=== PATIENT | male | born 1960 | race Caucasian/White ===

== ENCOUNTER 2018-03-11 21:25 | Inpatient (IN) | payer OTHER ==
[2018-03-11] MEDS ORDERED: morphine 2 MG INJ IV (22:30)
[2018-03-11] MEDS ORDERED: DOCUSATE SODIUM 100 MG CAP PO (22:30)
[2018-03-11] MEDS ORDERED: NACL 0.9% 3 ML SYG IV (22:30)
[2018-03-11] MEDS ORDERED: ONDANSETRON 4 MG INJ IV (22:30)
[2018-03-11] MEDS ORDERED: BISACODYL (EC) 5 MG TAB PO (22:30)
[2018-03-11 23:17] LABS: ADD MAN DIFF? NO
[2018-03-11 23:19] LABS: BASOPHILS % 0.3 % (0.0-2.0); EOSINOPHILS # 0.2 10^3/ul (0.0-0.5); EOSINOPHILS % 1.9 % (0.0-7.0); HEMATOCRIT 43.9 % (42.0-52.0); LYMPHOCYTES # 3.8 10^3/ul (0.8-2.9); LYMPHOCYTES % 34.5 % (15.0-51.0); MEAN CORPUSCULAR HEMOGLOBIN 30.7 pg (29.0-33.0); MEAN CORPUSCULAR HGB CONC 34.2 g/dl (32.0-37.0); MEAN CORPUSCULAR VOLUME 89.8 fl (82.0-101.0); MEAN PLATELET VOLUME 10.7 fl (7.4-10.4); MONOCYTE # 0.9 10^3/ul (0.3-0.9); MONOCYTES % 8.1 % (0.0-11.0); NEUTROPHILS % 54.8 % (39.0-77.0); PLATELET COUNT 255 10^3/UL (140-415); RED BLOOD COUNT 4.89 10^6/ul (4.70-6.10); RED CELL DISTRIBUTION WIDTH 12.8 % (11.5-14.5)
[2018-03-11 23:19] LABS: WHITE BLOOD COUNT 10.9 10^3/ul (4.8-10.8)
[2018-03-11 23:40] LABS: INR 0.93; PROTIME 12.6 Sec (11.9-14.9)
[2018-03-11 23:48] LABS: ALANINE AMINOTRANSFERASE 46 IU/L (13-69); ALBUMIN 4.1 g/dl (3.3-4.9); ALBUMIN/GLOBULIN RATIO 1.24; ALKALINE PHOSPHATASE 63 IU/L (42-121); ANION GAP 11 (8-16); ASPARTATE AMINO TRANSFERASE 59 IU/L (15-46); BILIRUBIN,INDIRECT 0.5 mg/dl (0-1.1); BILIRUBIN,TOTAL 0.5 mg/dl (0.2-1.3); BLOOD UREA NITROGEN 19 mg/dl (7-20); CALCIUM 9.3 mg/dl (8.4-10.2); CARBON DIOXIDE 29 mmol/L (21-31); CHLORIDE 103 mmol/L (97-110); CREATINE KINASE 172 IU/L (23-200); GLUCOSE 128 mg/dl (70-220); POTASSIUM 4.1 mmol/L (3.5-5.1); SODIUM 139 mmol/L (135-144); TOTAL PROTEIN 7.4 g/dl (6.1-8.1)
[2018-03-11 23:54] LABS: CK INDEX 4.6; CK-MB 7.95 ng/ml (0.0-2.4)
[2018-03-12] MEDS: NITROGLYCERIN (SL) 0.4 MG TAB SL (00:09)
[2018-03-12] MEDS: HEPARIN 1000 UNITS/ML 10 ML INJ IV (00:13)
[2018-03-12] MEDS: HEPARIN 25000 UNITS/250 ML 250 ML IV (00:21)
[2018-03-12] MEDS: SOD CHLORIDE 0.9% 1,000 ML IV ×2 (00:59→17:17)
[2018-03-12 04:48] LABS: ADD MAN DIFF? NO
[2018-03-12 04:50] LABS: WHITE BLOOD COUNT 10.3 10^3/ul (4.8-10.8)
[2018-03-12 04:50] LABS: BASOPHILS % 0.3 % (0.0-2.0); EOSINOPHILS # 0.3 10^3/ul (0.0-0.5); EOSINOPHILS % 2.8 % (0.0-7.0); HEMATOCRIT 41.3 % (42.0-52.0); HEMOGLOBIN 14.3 g/dl (14.0-18.0); LYMPHOCYTES # 3.3 10^3/ul (0.8-2.9); MEAN CORPUSCULAR HGB CONC 34.6 g/dl (32.0-37.0); MEAN CORPUSCULAR VOLUME 89.4 fl (82.0-101.0); MEAN PLATELET VOLUME 10.4 fl (7.4-10.4); MONOCYTE # 1.2 10^3/ul (0.3-0.9); MONOCYTES % 11.4 % (0.0-11.0); NEUTROPHIL # 5.5 10^3/ul (1.6-7.5); PLATELET COUNT 239 10^3/UL (140-415); RED BLOOD COUNT 4.62 10^6/ul (4.70-6.10); RED CELL DISTRIBUTION WIDTH 12.8 % (11.5-14.5)
[2018-03-12 05:08] LABS: HEMOGLOBIN A1C 5.5 % (0-5.9)
[2018-03-12 05:11] LABS: PARTIAL THROMBOPLASTIN TIME 63.3 Sec (25.0-35.0)
[2018-03-12 05:12] LABS: CREATINE KINASE 150 IU/L (23-200)
[2018-03-12 05:13] LABS: ALANINE AMINOTRANSFERASE 45 IU/L (13-69); ALBUMIN 3.7 g/dl (3.3-4.9); ALBUMIN/GLOBULIN RATIO 1.19; ALKALINE PHOSPHATASE 63 IU/L (42-121); ANION GAP 11 (8-16); ASPARTATE AMINO TRANSFERASE 54 IU/L (15-46); BILIRUBIN,INDIRECT 0.6 mg/dl (0-1.1); BILIRUBIN,TOTAL 0.6 mg/dl (0.2-1.3); BLOOD UREA NITROGEN 21 mg/dl (7-20); CALCIUM 8.8 mg/dl (8.4-10.2); CARBON DIOXIDE 27 mmol/L (21-31); CHLORIDE 106 mmol/L (97-110); GLUCOSE 107 mg/dl (70-220); MAGNESIUM 2.1 mg/dl (1.7-2.5); TOTAL PROTEIN 6.8 g/dl (6.1-8.1)
[2018-03-12 05:18] LABS: SODIUM 140 mmol/L (135-144)
[2018-03-12 05:25] LABS: CK INDEX 3.9; CK-MB 5.87 ng/ml (0.0-2.4)
[2018-03-12] MEDS ORDERED: HEPARIN 1000 UNITS/ML 10 ML INJ IV (06:00)
[2018-03-12] MEDS: ASPIRIN 81 MG TAB PO (09:28)
[2018-03-12] MEDS ORDERED: NITROGLYCERIN (SL) 0.4 MG TAB SL (09:30)
[2018-03-12 10:15] LABS: CHOL/HDL RATIO 4.3 RATIO; HDL CHOLESTEROL 49 mg/dl (28-71); LDL CHOLESTEROL,CALCULATED 108 mg/dl; TRIGLYCERIDES 289 mg/dl (0-149)
[2018-03-12 10:15] LABS: CHOLESTEROL 215 mg/dl (100-200)
[2018-03-12] MEDS: METOPROLOL 25 MG TAB PO ×2 (10:24→21:10)
[2018-03-12 11:20] LABS: CREATINE KINASE 115 IU/L (23-200)
[2018-03-12 11:33] LABS: CK INDEX 3.8; CK-MB 4.42 ng/ml (0.0-2.4)
[2018-03-12] MEDS ORDERED: MIDAZOLAM 1 MG/ML 2 ML INJ (14:30)
[2018-03-12] MEDS ORDERED: LIDOCAINE 1% (MDV) 20 ML INJ ×2 (14:30→14:44)
[2018-03-12] MEDS ORDERED: IOHEXOL 350MG/ML 50 ML BTL (14:30)
[2018-03-12] MEDS ORDERED: NITROGLYCERIN (IC) 100 MCG/ML INJ (14:30)
[2018-03-12] MEDS ORDERED: FENTAnyl 50 MCG/ML VIAL (14:30)
[2018-03-12] MEDS ORDERED: VERAPAMIL 5 MG INJ (14:30)
[2018-03-12] MEDS ORDERED: IODIXANOL LOCM 100 ML BTL (14:30)
[2018-03-12] MEDS ORDERED: BIVALIRUDIN 250MG /NS 50 ML 50 ML IVPB ×2 (14:57→15:48)
[2018-03-12] MEDS ORDERED: CLOPIDOGREL 300 MG TAB ×2 (14:57→15:35)
[2018-03-12] MEDS ORDERED: OXYCODONE/ACETAMINOPHEN (5/325) TAB PO ×2 (16:00)
[2018-03-12] MEDS ORDERED: ACETAMINOPHEN 325 MG TAB PO (16:00)
[2018-03-12] MEDS ORDERED: morphine 2 MG INJ IV (16:00)
[2018-03-12 17:04] LABS: CREATINE KINASE 106 IU/L (23-200)
[2018-03-12 17:16] LABS: CK INDEX 2.5; CK-MB 2.67 ng/ml (0.0-2.4)
[2018-03-12] MEDS ORDERED: ATROPINE 1 MG/10 ML SYRINGE (20:29)
[2018-03-12] MEDS: ATORVASTATIN 40 MG TAB PO (21:08)
[2018-03-12] MEDS: ISOSORBIDE DINITRATE 20 MG TAB PO (21:30)
[2018-03-12 23:54] LABS: CREATINE KINASE 84 IU/L (23-200)
[2018-03-13 00:08] LABS: CK INDEX 3.1
[2018-03-13 07:47] LABS: ADD MAN DIFF? NO
[2018-03-13 08:06] LABS: BASOPHILS % 0.2 % (0.0-2.0); EOSINOPHILS # 0.1 10^3/ul (0.0-0.5); EOSINOPHILS % 1.3 % (0.0-7.0); HEMATOCRIT 39.3 % (42.0-52.0); HEMOGLOBIN 13.2 g/dl (14.0-18.0); LYMPHOCYTES # 1.5 10^3/ul (0.8-2.9); LYMPHOCYTES % 18.3 % (15.0-51.0); MEAN CORPUSCULAR HEMOGLOBIN 30.8 pg (29.0-33.0); MEAN CORPUSCULAR HGB CONC 33.6 g/dl (32.0-37.0); MEAN CORPUSCULAR VOLUME 91.8 fl (82.0-101.0); MEAN PLATELET VOLUME 10.7 fl (7.4-10.4); MONOCYTE # 0.8 10^3/ul (0.3-0.9); NEUTROPHIL # 5.7 10^3/ul (1.6-7.5); NEUTROPHILS % 69.8 % (39.0-77.0); PLATELET COUNT 244 10^3/UL (140-415); RED BLOOD COUNT 4.28 10^6/ul (4.70-6.10); RED CELL DISTRIBUTION WIDTH 12.9 % (11.5-14.5)
[2018-03-13 08:06] LABS: WHITE BLOOD COUNT 8.2 10^3/ul (4.8-10.8)
[2018-03-13 08:16] LABS: ANION GAP 11 (8-16); BLOOD UREA NITROGEN 17 mg/dl (7-20); CALCIUM 8.9 mg/dl (8.4-10.2); CARBON DIOXIDE 28 mmol/L (21-31); CHLORIDE 106 mmol/L (97-110); GLUCOSE 108 mg/dl (70-220); POTASSIUM 4.8 mmol/L (3.5-5.1); SODIUM 140 mmol/L (135-144)
[2018-03-13 08:19] LABS: CREATINE KINASE 80 IU/L (23-200); MAGNESIUM 2.1 mg/dl (1.7-2.5)
[2018-03-13 08:19] LABS: PHOSPHORUS 3.2 mg/dl (2.5-4.9)
[2018-03-13 08:22] LABS: PARTIAL THROMBOPLASTIN TIME 28.9 Sec (25.0-35.0)
[2018-03-13 08:29] LABS: CK INDEX 2.3; CK-MB 1.87 ng/ml (0.0-2.4)
[2018-03-13] MEDS: METOPROLOL 25 MG TAB PO (08:44)
[2018-03-13] MEDS: ASPIRIN 81 MG TAB PO (08:44)
[2018-03-13] MEDS: CLOPIDOGREL 75 MG TAB PO (08:44)
[2018-03-13] MEDS: ISOSORBIDE DINITRATE 20 MG TAB PO (08:45)
[2018-03-13 09:25] LABS: ALANINE AMINOTRANSFERASE 45 IU/L (13-69); ALBUMIN 3.5 g/dl (3.3-4.9); ALKALINE PHOSPHATASE 49 IU/L (42-121); ASPARTATE AMINO TRANSFERASE 38 IU/L (15-46); BILIRUBIN,INDIRECT 0.6 mg/dl (0-1.1); BILIRUBIN,TOTAL 0.6 mg/dl (0.2-1.3); CHOL/HDL RATIO 4.7 RATIO; CHOLESTEROL 179 mg/dl (100-200); HDL CHOLESTEROL 38 mg/dl (28-71); LDL CHOLESTEROL,CALCULATED 101 mg/dl; TOTAL PROTEIN 6.1 g/dl (6.1-8.1); TRIGLYCERIDES 201 mg/dl (0-149)
[2018-03-13 09:35] LABS: B-TYPE NATRIURETIC PEPTIDE 347 PG/ML (0-125)
[2018-03-13] MEDS: ACETAMINOPHEN 325 MG TAB PO (11:10)
== END 2018-03-13 11:15 | disposition home or self-care (01) | DRG 247 ==
LOC: TEL 21:25 → ICU 03-12 16:28
PROC: 027135Z Dilation of Coronary Artery, Two Arteries with Two Drug-eluting Intraluminal Devices, Percutaneous Approach (ICD-10-PCS; principal; 2018-03-12 14:00)
PROC: 02C03ZZ Extirpation of Matter from Coronary Artery, One Artery, Percutaneous Approach (ICD-10-PCS; 2018-03-12 14:00)
PROC: 4A023N7 Measurement of Cardiac Sampling and Pressure, Left Heart, Percutaneous Approach (ICD-10-PCS; 2018-03-12 14:00)
PROC: B211YZZ Fluoroscopy of Multiple Coronary Arteries using Other Contrast (ICD-10-PCS; 2018-03-12 14:00)
DX: I21.4 Non-ST elevation (NSTEMI) myocardial infarction (principal); I25.10 Atherosclerotic heart disease of native coronary artery without angina pectoris; E78.5 Hyperlipidemia, unspecified; Z91.14 Patient's other noncompliance with medication regimen; I25.2 Old myocardial infarction; Z95.5 Presence of coronary angioplasty implant and graft; Z87.891 Personal history of nicotine dependence
CPT/HCPCS: 71045; 80048; 80053; 80061; 80076; 82550; 82553; 83036; 83735; 83880; 84100; 84443; 84484; 85025; 85610; 85730; 87081; 93005; 93306; 93458